=== PATIENT | male | born 1940 | race Caucasian/White ===

== ENCOUNTER → 2018-12-27 | Outpatient (CLI) | payer MEDICARE, BC ==
[~2018-12-27] MED LIST: LIDOCAINE-MPF 1%, 5ML ONE; OMNIPAQUE 350 MG/ML, 100ML BOTTLE ONE
[2018-12-27 12:46] LABS: CREATININE 1.06 mg/dL (0.7-1.3)
== END | disposition home or self-care (01) ==
LOC: RAD 12:05
PROVIDERS: ATTEND Otolaryngology
DX: I65.21 Occlusion and stenosis of right carotid artery (principal); R22.1 Localized swelling, mass and lump, neck; M47.892 Other spondylosis, cervical region
CPT/HCPCS: 36415; 70491; 76942; 82565; 88173; Q9967

== ENCOUNTER 2019-02-12 12:58 | Outpatient (CLI) | payer MEDICARE, BC ==
[2019-02-12] MEDS ORDERED: LIDOCAINE-MPF 1%, 5ML ONE (14:15)
== END 2019-02-12 23:59 | disposition home or self-care (01) ==
LOC: RAD 12:58
PROVIDERS: ATTEND Otolaryngology
DX: C07 Malignant neoplasm of parotid gland (principal)
CPT/HCPCS: 10005; 42400; 76942; 88305; 88333; 88341; 88342